=== PATIENT | male | born 1985 | race Caucasian/White ===

== ENCOUNTER 2019-03-22 08:16 | Emergency (ER) | payer SELFPAY ==
[~2019-03-22] VITALS: Ht 170.2 cm; Wt 70.3 kg
[2019-03-22 08:28] VITALS: Ht 170.2 cm; Wt 70.3 kg
[2019-03-22 11:41] VITALS: BP 122/74
== END 2019-03-22 11:41 | disposition home or self-care (01) ==
LOC: EDBD 08:16 → ED 08:16
DX: R07.89 Other chest pain (principal)